=== PATIENT | female | born 1975 | race American Indian/Alaskan Native ===

== ENCOUNTER 2017-07-03 12:38 | Emergency (ER) | payer OTHER ==
[2017-07-03] MEDS ORDERED: Sodium Chloride 0.9% 1,000 ML IV ONE (12:59)
[2017-07-03] MEDS ORDERED: Ondansetron 4 MG/2 ML SDV IV ONE ×2 (12:59→15:16)
[2017-07-03] MEDS: Sodium Chloride 0.9% 10 ML Syringe FLUSH PRN ×2 (13:12→15:24)
[2017-07-03] MEDS ORDERED: Acetaminophen 325 MG Tab PO ONE (13:18)
[2017-07-03] MEDS ORDERED: Ketorolac 30 MG/ML SDV IVPUSH ONE (13:18)
[2017-07-03 13:50] LABS: CHLORIDE,CL 105 mmol/L (101-111); SODIUM,NA 137 mmol/L (135-145)
[2017-07-03] MEDS ORDERED: Acetaminophen/HYDROcodone 325-10 MG Tab PO ONE (15:16)
--- NOTE | 2017-07-03 15:20 | EDM.PDOC ---
Scribed by Odette Kat 07/03/17 1314 for Nilton Hedrick MD ED HPI GENERAL MEDICAL PROBLEM - General Chief Complaint: Chest Pain Stated Complaint: [id number] SICK FOR 4 DAYS Time Seen by Provider: 07/03/17 12:57 Source of Information: Reports: Patient, RN, RN Notes Reviewed History Limitations: Reports: No Limitations - History of Present Illness INITIAL COMMENTS - FREE TEXT/NARRATIVE: Patient arrives from home by POV with complaint of 4 days of cough, chest pains , fever, chills, nausea, vomiting and shortness of breath. Denies abdominal pain. Duration: Getting Worse Location: Reports: Chest Quality: Reports: Ache Severity: Severe Improves with: Reports: None Worsens with: Reports: None Associated Symptoms: Reports: No Other Symptoms Chest Pain Score (Numeric/FACES): 8 - Related Data Allergies Allergy/AdvReac Type Severity Reaction Status Date / Time cephalexin Allergy Hives Verified 07/03/17 12:51 Penicillins Allergy Hives Verified 07/03/17 12:51 sulfamethoxazole Allergy Rash Verified 07/03/17 12:51 [From Bactrim] trimethoprim [From Bactrim] Allergy Rash Verified 07/03/17 12:51 Home Meds: Home Meds Ibuprofen [Motrin Children's Susp] 800 mg PO BIDM PRN 08/20/13 [History] Acetaminophen 500 mg PO Q6H PRN 05/21/16 [History] Albuterol Sulfate [Proair Respiclick] 90 mcg IH Q4H PRN 05/21/16 [History] Cyclobenzaprine [Flexeril] 10 mg PO Q8H PRN 05/21/16 [History] Esomeprazole [NexIUM] 40 mg PO DAILY 05/21/16 [History] Estrogens, Conjugated [Premarin Vaginal Crm] 1 gm VAG .TWICE WEEKLY 05/21/16 [ History] Lisinopril [Prinivil] 2.5 mg PO BID 05/21/16 [History] Mometasone/Formoterol [Dulera 100-5 MCG] 2 puff IH BIDRT 05/21/16 [History] Ranitidine HCl [Ranitidine] 150 mg PO BID 05/21/16 [History] Past Medical History HEENT History: Reports: Impaired Vision Cardiovascular History: Reports: None Respiratory History: Reports: None Gastrointestinal History: Reports: Other (See Below) Other Gastrointestinal History: ulcers Genitourinary History: Reports: Renal Disease, Other (See Below) Other Genitourinary History: stage 3 kidney disease 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 Other OB/BYN History: tubal Musculoskeletal History: Reports: None Neurological History: Reports: None Psychiatric History: Reports: None Endocrine/Metabolic History: Reports: None Hematologic History: Reports: None Immunologic History: Reports: None Oncologic (Cancer) History: Reports: None Dermatologic History: Reports: None - Infectious Disease History Infectious Disease History: Reports: None - Past Surgical History Head Surgeries/Procedures: Reports: None Social & Family History - Family History Family Medical History: Noncontributory - Tobacco Use Smoking Status *Q: Never Smoker Years of Tobacco use: 6 Used Tobacco, but Quit: Yes Month Tobacco Last Used: May Second Hand Smoke Exposure: Yes - Caffeine Use Caffeine Use: Reports: Soda - Alcohol Use Days Per Week of Alcohol Use: 0 - Recreational Drug Use Recreational Drug Use: No - Living Situation & Occupation Living situation: Reports: with Family ED ROS GENERAL - Review of Systems Review Of Systems: ROS reveals no pertinent complaints other than HPI. ED EXAM, GENERAL - Physical Exam Exam: See Below Exam Limited By: No Limitations General Appearance: Alert, WD/WN, No Apparent Distress, Obese Eye Exam: Bilateral Eye: Normal Inspection Ears: Normal External Exam, Normal Canal, Hearing Grossly Normal, Normal TMs Nose: Normal Inspection, Normal Mucosa, No Blood Throat/Mouth: Normal Inspection, Normal Lips, Normal Teeth, Normal Gums, Normal Oropharynx, Normal Voice, No Airway Compromise Head: Atraumatic, Normocephalic Neck: Normal Inspection, Supple, Non-Tender, Full Range of Motion, Other (No nuchal rigidity). No: Lymphadenopathy (L), Lymphadenopathy (R) Respiratory/Chest: No Respiratory Distress, No Accessory Muscle Use, Chest Non- Tender, Decreased Breath Sounds, Crackles, Other (occ. dry cough). No: Rales, Rhonchi, Wheezing Cardiovascular: Normal Peripheral Pulses, Regular Rate, Rhythm, No Edema, No Gallop, No JVD, No Murmur, No Rub GI/Abdominal: Normal Bowel Sounds, Soft, Non-Tender, No Distention, No Abnormal Bruit, Other (benign obese abdomen). No: Guarding, Rigid, Rebound (Female) Exam: Deferred Rectal (Female) Exam: Deferred Back Exam: Normal Inspection, Full Range of Motion, NT Extremities: Normal Inspection, Normal Range of Motion, Non-Tender, Normal Capillary Refill, No Pedal Edema Neurological: Alert, Oriented, CN II-XII Intact, Normal Cognition, Normal Gait, Normal Reflexes, No Motor/Sensory Deficits Psychiatric: Normal Affect, Normal Mood Skin Exam: Warm, Dry, Intact, Normal Color, No Rash EKG INTERPRETATION EKG Date: 07/03/17 Time: 12:47 Rhythm: Other (sinus rhythm) Rate (Beats/Min): 92 Moville: RAD-Right Moville Deviation (borderline) P-Wave: Present QRS: Normal ST-T: Normal QT: Normal Course - Vital Signs Last Recorded V/S: Last Vital Signs Temp 37.5 C 07/03/17 14:25 Pulse 87 07/03/17 14:25 Resp 16 07/03/17 14:25 BP 104/69 07/03/17 14:25 Pulse Ox 97 07/03/17 14:25 - Orders/Labs/Meds Orders: Active Orders 24 hr Category Date Time Status EKG 12 Lead [EKG Documentation Completion] [RC] STAT Care 07/03/17 12:57 Active Peripheral IV Care [RC] . DIRECTED Care 07/03/17 12:59 Active CULTURE BLOOD [BC] Stat Lab 07/03/17 12:59 Ordered CULTURE BLOOD [] Stat Lab 07/03/17 14:15 Received CULTURE STREP A CONFIRMATION [] Stat Lab 07/03/17 12:58 Results STREP SCRN A RAPID W CULT CONF [RM] Stat Lab 07/03/17 12:58 Results UA W/MICROSCOPIC [URIN] Stat Lab 07/03/17 14:05 Results Acetaminophen/HYDROcodone [Bruner 325-10 MG] Med 07/03/17 15:16 Once 1 tab PO ONETIME ONE Ondansetron [Zofran] Med 07/03/17 15:16 Once 4 mg IV ONETIME ONE Sodium Chloride 0.9% [Saline Flush] Med 07/03/17 12:58 Active 10 ml FLUSH ASDIRECTED PRN Blood Culture x2 Reflex Set [OM.PC] Stat Oth 07/03/17 12:57 Ordered Peripheral IV Insertion Adult [OM.PC] Stat Oth 03/03/18 12:57 Ordered Medication Orders Sodium Chloride (Saline Flush) 10 ml FLUSH ASDIRECTED PRN PRN Reason: Keep Vein Open Last Admin: 07/03/17 13:12 Dose: 10 ml Labs: Laboratory Tests 07/03/17 07/03/17 07/03/17 Range/Units 13:05 13:05 13:05 WBC 11.0 H (5.0-10.0) 10^3/uL RBC 4.53 (4.2-5.4) 10^6/uL Hgb 13.3 (12.0-16.0) g/dL Hct 39.1 (37.0-47.0) % MCV 86.3 (80-100) fL MCH 29.4 (27.0-34.0) pg MCHC 34.0 (33.0-35.0) g/dL Plt Count 281 (150-450) 10^3/uL Neut % (Auto) 76.5 H (42.2-75.2) % Lymph % (Auto) 14.1 L (20.5-50.1) % [place] % (Auto) 5.2 (2-8) % Eos % (Auto) 3.9 H (1.0-3.0) % Baso % (Auto) 0.3 (0.0-1.0) % D-Dimer, Quantitative < 100 (0-400) ng/mL Sodium 137 (135-145) mmol/L Potassium 3.5 L (3.6-5.0) mmol/L Chloride 105 (101-111) mmol/L Carbon Dioxide 22.0 (21.0-31.0) mmol/L Anion Gap 13.5 BUN 15 (7-18) mg/dL Creatinine 1.0 (0.6-1.3) mg/dL Est Cr Clr Drug Dosing 59.15 mL/min Estimated GFR (MDRD) > 60 BUN/Creatinine Ratio 15.00 Glucose 115 H (74-105) mg/dL Lactic Acid (0.5-2.2) mmol/L Calcium 8.7 (8.4-10.2) mg/dl Total Bilirubin 0.4 (0.2-1.0) mg/dL AST 24 (10-42) IU/L ALT 39 (10-60) IU/L Alkaline Phosphatase 87 (42-121) IU/L Troponin I < 0.02 (0.00-0.02) ng/ml Total Protein 7.9 (6.7-8.2) g/dl Albumin 4.0 (3.2-5.5) g/dl Globulin 3.9 Albumin/Globulin Ratio 1.03 Amylase 57 (28-100) U/L Lipase 14 L (22-51) U/L Urine Color (YELLOW) Urine Appearance (CLEAR) Urine pH (5.0-9.0) Ur Specific Parker (1.005-1.030) Urine Protein (NEGATIVE) Urine Glucose (UA) (NEGATIVE) Urine Ketones (NEGATIVE) Urine Occult Blood (NEGATIVE) Urine Nitrite (NEGATIVE) Urine Bilirubin (NEGATIVE) Urine Urobilinogen (0.2-1.0) mg/dL Ur Leukocyte Esterase (NEGATIVE) Urine HCG, Qual Urine Opiates Screen (NEGATIVE) Ur Oxycodone Screen (NEGATIVE) Urine Methadone Screen (NEGATIVE) Ur Barbiturates Screen (NEGATIVE) U Tricyclic Antidepress (NEGATIVE) Ur Phencyclidine Scrn (NEGATIVE) Ur Amphetamine Screen (NEGATIVE) U Methamphetamines Scrn (NEGATIVE) Urine MDMA Screen (NEGATIVE) U Benzodiazepines Scrn (NEGATIVE) Urine Cocaine Screen (NEGATIVE) U Marijuana (THC) Screen (NEGATIVE) 07/03/17 07/03/17 07/03/17 Range/Units 13:05 14:05 14:09 WBC (5.0-10.0) 10^3/uL RBC (4.2-5.4) 10^6/uL Hgb (12.0-16.0) g/dL Hct (37.0-47.0) % MCV (80-100) fL MCH (27.0-34.0) pg MCHC (33.0-35.0) g/dL Plt Count (150-450) 10^3/uL Neut % (Auto) (42.2-75.2) % Lymph % (Auto) (20.5-50.1) % [place] % (Auto) (2-8) % Eos % (Auto) (1.0-3.0) % Baso % (Auto) (0.0-1.0) % D-Dimer, Quantitative (0-400) ng/mL Sodium (135-145) mmol/L Potassium (3.6-5.0) mmol/L Chloride (101-111) mmol/L Carbon Dioxide (21.0-31.0) mmol/L Anion Gap BUN (7-18) mg/dL Creatinine (0.6-1.3) mg/dL Est Cr Clr Drug Dosing mL/min Estimated GFR (MDRD) BUN/Creatinine Ratio Glucose (74-105) mg/dL Lactic Acid 1.2 (0.5-2.2) mmol/L Calcium (8.4-10.2) mg/dl Total Bilirubin (0.2-1.0) mg/dL AST (10-42) IU/L ALT (10-60) IU/L Alkaline Phosphatase (42-121) IU/L Troponin I (0.00-0.02) ng/ml Total Protein (6.7-8.2) g/dl Albumin (3.2-5.5) g/dl Globulin Albumin/Globulin Ratio Amylase (28-100) U/L Lipase (22-51) U/L Urine Color Yellow (YELLOW) Urine Appearance Slightly cloudy (CLEAR) Urine pH 6.0 (5.0-9.0) Ur Specific Parker 1.025 (1.005-1.030) Urine Protein 100 H (NEGATIVE) Urine Glucose (UA) Negative (NEGATIVE) Urine Ketones Negative (NEGATIVE) Urine Occult Blood Negative (NEGATIVE) Urine Nitrite Negative (NEGATIVE) Urine Bilirubin Negative (NEGATIVE) Urine Urobilinogen 0.2 (0.2-1.0) mg/dL Ur Leukocyte Esterase Negative (NEGATIVE) Urine HCG, Qual Negative Urine Opiates Screen (NEGATIVE) Ur Oxycodone Screen (NEGATIVE) Urine Methadone Screen (NEGATIVE) Ur Barbiturates Screen (NEGATIVE) U Tricyclic Antidepress (NEGATIVE) Ur Phencyclidine Scrn (NEGATIVE) Ur Amphetamine Screen (NEGATIVE) U Methamphetamines Scrn (NEGATIVE) Urine MDMA Screen (NEGATIVE) U Benzodiazepines Scrn (NEGATIVE) Urine Cocaine Screen (NEGATIVE) U Marijuana (THC) Screen (NEGATIVE) 07/03/17 Range/Units 14:09 WBC (5.0-10.0) 10^3/uL RBC (4.2-5.4) 10^6/uL Hgb (12.0-16.0) g/dL Hct (37.0-47.0) % MCV (80-100) fL MCH (27.0-34.0) pg MCHC (33.0-35.0) g/dL Plt Count (150-450) 10^3/uL Neut % (Auto) (42.2-75.2) % Lymph % (Auto) (20.5-50.1) % [place] % (Auto) (2-8) % Eos % (Auto) (1.0-3.0) % Baso % (Auto) (0.0-1.0) % D-Dimer, Quantitative (0-400) ng/mL Sodium (135-145) mmol/L Potassium (3.6-5.0) mmol/L Chloride (101-111) mmol/L Carbon Dioxide (21.0-31.0) mmol/L Anion Gap BUN (7-18) mg/dL Creatinine (0.6-1.3) mg/dL Est Cr Clr Drug Dosing mL/min Estimated GFR (MDRD) BUN/Creatinine Ratio Glucose (74-105) mg/dL Lactic Acid (0.5-2.2) mmol/L Calcium (8.4-10.2) mg/dl Total Bilirubin (0.2-1.0) mg/dL AST (10-42) IU/L ALT (10-60) IU/L Alkaline Phosphatase (42-121) IU/L Troponin I (0.00-0.02) ng/ml Total Protein (6.7-8.2) g/dl Albumin (3.2-5.5) g/dl Globulin Albumin/Globulin Ratio Amylase (28-100) U/L Lipase (22-51) U/L Urine Color (YELLOW) Urine Appearance (CLEAR) Urine pH (5.0-9.0) Ur Specific [place] (1.005-1.030) Urine Protein (NEGATIVE) Urine Glucose (UA) (NEGATIVE) Urine Ketones (NEGATIVE) Urine Occult Blood (NEGATIVE) Urine Nitrite (NEGATIVE) Urine Bilirubin (NEGATIVE) Urine Urobilinogen (0.2-1.0) mg/dL Ur Leukocyte Esterase (NEGATIVE) Urine HCG, Qual Urine Opiates Screen Negative (NEGATIVE) Ur Oxycodone Screen Negative (NEGATIVE) Urine Methadone Screen Negative (NEGATIVE) Ur Barbiturates Screen Negative (NEGATIVE) U Tricyclic Antidepress Positive H (NEGATIVE) Ur Phencyclidine Scrn Negative (NEGATIVE) Ur Amphetamine Screen Negative (NEGATIVE) U Methamphetamines Scrn Negative (NEGATIVE) Urine MDMA Screen Negative (NEGATIVE) U Benzodiazepines Scrn Negative (NEGATIVE) Urine Cocaine Screen Negative (NEGATIVE) U Marijuana (THC) Screen Negative (NEGATIVE) Rapid strep: Negative. Influenza A and B: Negative. Meds: Medications Generic Name Dose Route Start Last Admin Trade Name Frejosh PRN Reason Stop Dose Admin Sodium Chloride 10 ml 07/03/17 12:58 07/03/17 13:12 Saline Flush FLUSH 10 ml ASDIRECTED PRN Administration Keep Vein Open Discontinued Medications Generic Name Dose Route Start Last Admin Trade Name Freq PRN Reason Stop Dose Admin Acetaminophen 650 mg 07/03/17 13:18 07/03/17 13:26 Tylenol PO 07/03/17 13:19 650 mg NOW ONE Administration Sodium Chloride 1,000 mls @ 999 mls/hr 07/03/17 12:59 07/03/17 13:11 Normal Saline IV 07/03/17 13:59 999 mls/hr .BOLUS ONE Administration Ketorolac Tromethamine 30 mg 07/03/17 13:18 07/03/17 13:26 Toradol IVPUSH 07/03/17 13:19 30 mg ONETIME ONE Administration Ondansetron HCl 4 mg 07/03/17 12:59 07/03/17 13:11 Zofran IV 07/03/17 13:00 4 mg ONETIME ONE Administration - Radiology Interpretation Free Text/Narrative:: Chest x-ray: No evidence for acute pulmonary disease. See rad report. Departure - Departure Time of Disposition: 15:18 Disposition: Home, Self-Care 01 Condition: Good Clinical Impression: Acute viral syndrome - Discharge Information Instructions: Viral Illness, Adult, Fever, Adult, [id number] Forms: ED Department Discharge Additional Instructions: Rx: Promethazine 25mg Clear liquid diet until nausea and vomiting resolve, then advance to soft bland diet as tolerated. Avoid dairy products, fried or greasy foods, and spicy foods until completely improved. Follow up in clinic if not improving in 3 to 5 days. Return to ER pain becomes severe, you are unable to tolerated clear liquids without vomiting, or if any other emergent symptoms develop. - My Orders Last 24 Hours: My Active Orders 07/03/17 12:57 EKG 12 Lead [EKG Documentation Completion] [RC] STAT Blood Culture x2 Reflex Set [OM.PC] Stat Peripheral IV Insertion Adult [OM.PC] Stat 07/03/17 12:58 CULTURE STREP A CONFIRMATION [RM] Stat STREP SCRN A RAPID W CULT CONF [RM] Stat Sodium Chloride 0.9% [Saline Flush] 10 ml FLUSH ASDIRECTED PRN 07/03/17 12:59 Peripheral IV Care [RC] . DIRECTED CULTURE BLOOD [BC] Stat 07/03/17 14:05 UA W/MICROSCOPIC [URIN] Stat 07/03/17 14:15 CULTURE BLOOD [BC] Stat 07/03/17 15:16 Acetaminophen/HYDROcodone [Bruner 325-10 MG] 1 tab PO ONETIME ONE Ondansetron [Zofran] 4 mg IV ONETIME ONE - Assessment/Plan Last 24 Hours: My Active Orders 07/03/17 12:57 EKG 12 Lead [EKG Documentation Completion] [RC] STAT Blood Culture x2 Reflex Set [OM.PC] Stat Peripheral IV Insertion Adult [OM.PC] Stat 07/03/17 12:58 CULTURE STREP A CONFIRMATION [RM] Stat STREP SCRN A RAPID W CULT CONF [RM] Stat Sodium Chloride 0.9% [Saline Flush] 10 ml FLUSH ASDIRECTED PRN 07/03/17 12:59 Peripheral IV Care [RC] . DIRECTED CULTURE BLOOD [BC] Stat 07/03/17 14:05 UA W/MICROSCOPIC [URIN] Stat 07/03/17 14:15 CULTURE BLOOD [BC] Stat 07/03/17 15:16 Acetaminophen/HYDROcodone [Bruner 325-10 MG] 1 tab PO ONETIME ONE Ondansetron [Zofran] 4 mg IV ONETIME ONE I have read and agree with the documentation that has been completed regarding this visit. By signing this record, I attest that the documentation was completed in my physical presence and is an accurate record of the encounter.
[2017-07-03 15:32] VITALS: BP 97/81
--- NOTE | 2017-07-06 11:54 | EKG ---
07/03/2017 - COLIN LIM Yovany - TIME: 12:47 p.m. FINDINGS: EKG shows a normal sinus rhythm, with a rate of 92 beats per minute, normal axis, normal QRS complex, normal T-wave and ST segments. [facility] /[id number]
== END 2017-07-03 15:32 | disposition home or self-care (01) ==
LOC: DL.ED 12:38
DX: B34.9 Viral infection, unspecified (principal); N18.3 Chronic kidney disease, stage 3 (moderate); Z87.891 Personal history of nicotine dependence; Z79.899 Other long term (current) drug therapy; Z88.0 Allergy status to penicillin; Z88.1 Allergy status to other antibiotic agents; Z88.2 Allergy status to sulfonamides
CPT/HCPCS: 36415; 71046; 80053; 80305; 81001; 81025; 82150; 83605; 83690; 84484; 85025; 85379; 87040; 87081; 87430; 87804; 93005; 96361; 96374; 96375; 96376; 99285; A9270; J1885; J2405; J7030; J7050

== ENCOUNTER 2018-09-16 08:47 | Inpatient (IN) | payer OTHER ==
--- NOTE | 2018-09-16 09:11 | EDM.PDOC ---
ED HPI GENERAL MEDICAL PROBLEM - General Chief Complaint: Flank Pain Stated Complaint: KIDNEY PAINS [id number] Time Seen by Provider: 09/16/18 09:11 Source of Information: Reports: Patient, Family, RN, RN Notes Reviewed History Limitations: Reports: No Limitations - History of Present Illness INITIAL COMMENTS - FREE TEXT/NARRATIVE: Patient to ER with c/o "kidney pain". 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 Patient states she has been having pain since Wednesday. She admits to fever, chills, N/V. Denies diarrhea. Denies urinary symptoms, but states she has not urinated much since Wednesday. Denies kidney stones in the past. Onset: Gradual Duration: Constant, Getting Worse Location: Reports: Abdomen, Back Right Flank Pain Score (Numeric/FACES): 10 - Related Data Allergies Allergy/AdvReac Type Severity Reaction Status Date / Time cephalexin Allergy Hives Verified 07/03/17 12:51 Penicillins Allergy Hives Verified 07/03/17 12:51 sulfamethoxazole Allergy Rash Verified 07/03/17 12:51 [From Bactrim] trimethoprim [From Bactrim] Allergy Rash Verified 07/03/17 12:51 Home Meds: Home Meds Ibuprofen [Motrin Children's Susp] 800 mg PO BIDM PRN 08/20/13 [History] Acetaminophen 500 mg PO Q6H PRN 05/21/16 [History] Albuterol Sulfate [Proair Respiclick] 90 mcg IH Q4H PRN 05/21/16 [History] Cyclobenzaprine [Flexeril] 10 mg PO Q8H PRN 05/21/16 [History] Esomeprazole [NexIUM] 40 mg PO DAILY 05/21/16 [History] Estrogens, Conjugated [Premarin Vaginal Crm] 1 gm VAG .TWICE WEEKLY 05/21/16 [ History] Lisinopril [Prinivil] 2.5 mg PO BID 05/21/16 [History] Mometasone/Formoterol [Dulera 100-5 MCG] 2 puff IH BIDRT 05/21/16 [History] Ranitidine HCl [Ranitidine] 150 mg PO BID 05/21/16 [History] Past Medical History HEENT History: Reports: Impaired Vision Cardiovascular History: Reports: None Respiratory History: Reports: None Gastrointestinal History: Reports: Other (See Below) Other Gastrointestinal History: ulcers Genitourinary History: Reports: Renal Disease, Other (See Below) Other Genitourinary History: stage 3 kidney disease 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 SPLICING MACHINE 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 History: tubal Musculoskeletal History: Reports: None Neurological History: Reports: None Psychiatric History: Reports: None Endocrine/Metabolic History: Reports: None Hematologic History: Reports: None Immunologic History: Reports: None Oncologic (Cancer) History: Reports: None Dermatologic History: Reports: None - Infectious Disease History Infectious Disease History: Reports: None - Past Surgical History Head Surgeries/Procedures: Reports: None Social & Family History - Family History Family Medical History: Noncontributory - Tobacco Use Smoking Status *Q: Unknown Ever Smoked - Caffeine Use Caffeine Use: Reports: None - Recreational Drug Use Recreational Drug Use: No - Living Situation & Occupation Living situation: Reports: with Family ED ROS GENERAL - Review of Systems Review Of Systems: ROS reveals no pertinent complaints other than HPI. ED EXAM, RENAL/ - Physical Exam Exam: See Below Exam Limited By: No Limitations General Appearance: Alert, WD/WN, Moderate Distress Eye Exam: Bilateral Eye: EOMI, Normal Inspection Ears: Normal External Exam, Hearing Grossly Normal Nose: Normal Inspection Throat/Mouth: Normal Inspection, Normal Voice, No Airway Compromise Head: Atraumatic, Normocephalic Neck: Normal Inspection, Supple, Non-Tender, Full Range of Motion Respiratory/Chest: No Respiratory Distress, Lungs Clear, Normal Breath Sounds, No Accessory Muscle Use, Chest Non-Tender Cardiovascular: Normal Peripheral Pulses, Regular Rate, Rhythm, No Edema, No Gallop, No JVD, No Murmur, No Rub GI/Abdominal: Normal Bowel Sounds, Soft, Tender (Female) Exam: Deferred Rectal (Female) Exam: Deferred Back Exam: Normal Inspection, CVA Tenderness (R), Decreased Range of Motion Extremities: Normal Inspection, Normal Range of Motion, Non-Tender, Normal Capillary Refill, No Pedal Edema Neurological: Alert, Oriented, CN II-XII Intact, Normal Cognition, Normal Gait, Normal Reflexes, No Motor/Sensory Deficits Psychiatric: Normal Affect, Normal Mood Skin Exam: Warm, Dry, Intact, Normal Color, No Rash Lymphatic: No Adenopathy Course - Vital Signs Last Recorded V/S: Last Vital Signs Temp 98.6 F 09/16/18 08:52 Pulse 120 H 09/16/18 08:52 Resp 16 09/16/18 08:52 BP 111/64 09/16/18 08:52 Pulse Ox 96 09/16/18 08:52 - Orders/Labs/Meds Orders: Active Orders 24 hr Category Date Time Status Abdomen Pelvis wo Cont [CT] Urgent Exams 09/16/18 10:14 Taken CULTURE BLOOD [BC] Stat Lab 09/16/18 09:48 Received CULTURE BLOOD [BC] Stat Lab 09/16/18 09:55 Received CULTURE URINE [RM] Stat Lab 09/16/18 08:58 Received Ciprofloxacin in D5W [Cipro in D5W 400 MG/200 ML] 400 Med 09/16/18 11:03 Active mg Premix Bag 1 bag IV ONETIME Sodium Chloride 0.9% [Normal Saline] 1,000 ml Med 09/16/18 11:00 Active IV .BOLUS Sodium Chloride 0.9% [Saline Flush] Med 09/16/18 11:17 Active 10 ml FLUSH ASDIRECTED PRN Blood Culture x2 Reflex Set [OM.PC] Stat Oth 09/16/18 09:32 Ordered Medication Orders Sodium Chloride (Normal Saline) 1,000 mls @ 200 mls/hr IV .BOLUS ONE Stop: 09/16/18 15:59 Last Admin: 09/16/18 11:19 Dose: 200 mls/hr Ciprofloxacin/Dextrose 400 mg/ (Premix) 200 mls @ 200 mls/hr IV ONETIME ONE Stop: 09/16/18 12:02 Last Admin: 09/16/18 11:22 Dose: 200 mls/hr Sodium Chloride (Saline Flush) 10 ml FLUSH ASDIRECTED PRN PRN Reason: Keep Vein Open Last Admin: 09/16/18 11:18 Dose: 10 ml Labs: Laboratory Tests 09/16/18 09/16/18 09/16/18 Range/Units 08:58 08:58 09:02 WBC 19.7 H (5.0-10.0) 10^3/uL RBC 4.57 (4.2-5.4) 10^6/uL Hgb 13.9 (12.0-16.0) g/dL Hct 39.8 (37.0-47.0) % MCV 87.1 (80-100) fL MCH 30.4 (27.0-34.0) pg MCHC 34.9 (33.0-35.0) g/dL Plt Count 264 (150-450) 10^3/uL Neut % (Auto) 85.0 H (42.2-75.2) % Lymph % (Auto) 7.3 L (20.5-50.1) % Yates % (Auto) 7.4 (2-8) % Eos % (Auto) 0.1 L (1.0-3.0) % Baso % (Auto) 0.2 (0.0-1.0) % Sodium (135-145) mmol/L Potassium (3.6-5.0) mmol/L Chloride (101-111) mmol/L Carbon Dioxide (21.0-31.0) mmol/L Anion Gap BUN (7-18) mg/dL Creatinine (0.6-1.3) mg/dL Est Cr Clr Drug Dosing mL/min Estimated GFR (MDRD) BUN/Creatinine Ratio Glucose (74-105) mg/dL Lactic Acid (0.5-2.2) mmol/L Calcium (8.4-10.2) mg/dl Total Bilirubin (0.2-1.0) mg/dL AST (10-42) IU/L ALT (10-60) IU/L Alkaline Phosphatase (42-121) IU/L B-Natriuretic Peptide (0-100) pg/ml Total Protein (6.7-8.2) g/dl Albumin (3.2-5.5) g/dl Globulin Albumin/Globulin Ratio Urine Color Yellow (YELLOW) Urine Appearance Cloudy (CLEAR) Urine pH 5.5 (5.0-9.0) Ur Specific [place] 1.020 (1.005-1.030) Urine Protein 100 H (NEGATIVE) Urine Glucose (UA) Negative (NEGATIVE) Urine Ketones Negative (NEGATIVE) Urine Occult Blood Moderate H (NEGATIVE) Urine Nitrite Positive H (NEGATIVE) Urine Bilirubin Negative (NEGATIVE) Urine Urobilinogen 0.2 (0.2-1.0) mg/dL Ur Leukocyte Esterase Small H (NEGATIVE) Urine RBC 5-10 H /HPF Urine WBC >100 H (0-5/HPF) /HPF Ur Epithelial Cells Moderate H (NOT SEEN) /HPF Urine Bacteria Many H (0-FEW/HPF) /HPF Urine HCG, Qual Negative 09/16/18 09/16/18 Range/Units 09:02 09:48 WBC (5.0-10.0) 10^3/uL RBC (4.2-5.4) 10^6/uL Hgb (12.0-16.0) g/dL Hct (37.0-47.0) % MCV (80-100) fL MCH (27.0-34.0) pg MCHC (33.0-35.0) g/dL Plt Count (150-450) 10^3/uL Neut % (Auto) (42.2-75.2) % Lymph % (Auto) (20.5-50.1) % Yates % (Auto) (2-8) % Eos % (Auto) (1.0-3.0) % Baso % (Auto) (0.0-1.0) % Sodium 130 L (135-145) mmol/L Potassium 3.6 (3.6-5.0) mmol/L Chloride 99 L (101-111) mmol/L Carbon Dioxide 17.0 L (21.0-31.0) mmol/L Anion Gap 17.6 BUN 14 (7-18) mg/dL Creatinine 1.3 (0.6-1.3) mg/dL Est Cr Clr Drug Dosing 45.04 mL/min Estimated GFR (MDRD) 45 BUN/Creatinine Ratio 10.76 Glucose 141 H (74-105) mg/dL Lactic Acid 0.5 (0.5-2.2) mmol/L Calcium 8.9 (8.4-10.2) mg/dl Total Bilirubin 0.7 (0.2-1.0) mg/dL AST 46 H (10-42) IU/L ALT 50 (10-60) IU/L Alkaline Phosphatase 90 (42-121) IU/L B-Natriuretic Peptide 18 (0-100) pg/ml Total Protein 8.3 H (6.7-8.2) g/dl Albumin 4.0 (3.2-5.5) g/dl Globulin 4.3 Albumin/Globulin Ratio 0.93 Urine Color (YELLOW) Urine Appearance (CLEAR) Urine pH (5.0-9.0) Ur Specific [place] (1.005-1.030) Urine Protein (NEGATIVE) Urine Glucose (UA) (NEGATIVE) Urine Ketones (NEGATIVE) Urine Occult Blood (NEGATIVE) Urine Nitrite (NEGATIVE) Urine Bilirubin (NEGATIVE) Urine Urobilinogen (0.2-1.0) mg/dL Ur Leukocyte Esterase (NEGATIVE) Urine RBC /HPF Urine WBC (0-5/HPF) /HPF Ur Epithelial Cells (NOT SEEN) /HPF Urine Bacteria (0-FEW/HPF) /HPF Urine HCG, Qual Meds: Medications Generic Name Dose Route Start Last Admin Trade Name Freq PRN Reason Stop Dose Admin Sodium Chloride 1,000 mls @ 200 mls/hr 09/16/18 11:00 09/16/18 11:19 Normal Saline IV 09/16/18 15:59 200 mls/hr .BOLUS ONE Administration Ciprofloxacin/Dextrose 400 mg/ 200 mls @ 200 mls/hr 09/16/18 11:03 09/16/18 11:22 Premix IV 09/16/18 12:02 200 mls/hr ONETIME ONE Administration Sodium Chloride 10 ml 09/16/18 11:17 09/16/18 11:18 Saline Flush FLUSH 10 ml ASDIRECTED PRN Administration Keep Vein Open Discontinued Medications Generic Name Dose Route Start Last Admin Trade Name Freq PRN Reason Stop Dose Admin Hydromorphone HCl 1 mg 09/16/18 11:00 09/16/18 11:20 Dilaudid IVPUSH 09/16/18 11:01 1 mg ONETIME ONE Administration Sodium Chloride 1,000 mls @ 999 mls/hr 09/16/18 09:18 09/16/18 09:29 Normal Saline IV 09/16/18 10:18 999 mls/hr .BOLUS ONE Administration Ketorolac Tromethamine 30 mg 09/16/18 09:18 09/16/18 09:29 Toradol IVPUSH 09/16/18 09:19 30 mg ONETIME ONE Administration Ondansetron HCl 4 mg 09/16/18 09:26 09/16/18 09:29 Zofran IV 09/16/18 09:27 4 mg ONETIME ONE Administration - Radiology Interpretation Free Text/Narrative:: CT Abdomen/Pelvis wo contrast: Right pyelonephritis noted. Call from Dr. Cool as computer system is not working. See rad report when available - Re-Assessments/Exams Free Text/Narrative Re-Assessment/Exam: 09/16/18 11:26 Discussed patient case with Dr. Mccann who agreed to accept the patient to the medical floor for observation. Departure - Departure Time of Disposition: 11:26 Disposition: Refer to Observation Condition: Fair Clinical Impression: Pyelonephritis - Discharge Information *PRESCRIPTION DRUG MONITORING PROGRAM REVIEWED*: No *COPY OF PRESCRIPTION DRUG MONITORING REPORT IN PATIENT JOSE: No Forms: ED Department Discharge - My Orders Last 24 Hours: My Active Orders 09/16/18 08:58 CULTURE URINE [RM] Stat 09/16/18 09:32 Blood Culture x2 Reflex Set [OM.PC] Stat 09/16/18 09:48 CULTURE BLOOD [BC] Stat 09/16/18 09:55 CULTURE BLOOD [BC] Stat 09/16/18 10:14 Abdomen Pelvis wo Cont [CT] Urgent 09/16/18 11:00 Sodium Chloride 0.9% [Normal Saline] 1,000 ml IV .BOLUS 09/16/18 11:03 Ciprofloxacin in D5W [Cipro in D5W 400 MG/200 ML] 400 mg Premix Bag 1 bag IV ONETIME 09/16/18 11:17 Sodium Chloride 0.9% [Saline Flush] 10 ml FLUSH ASDIRECTED PRN - Assessment/Plan Last 24 Hours: My Active Orders 09/16/18 08:58 CULTURE URINE [RM] Stat 09/16/18 09:32 Blood Culture x2 Reflex Set [OM.PC] Stat 09/16/18 09:48 CULTURE BLOOD [BC] Stat 09/16/18 09:55 CULTURE BLOOD [BC] Stat 09/16/18 10:14 Abdomen Pelvis wo Cont [CT] Urgent 09/16/18 11:00 Sodium Chloride 0.9% [Normal Saline] 1,000 ml IV .BOLUS 09/16/18 11:03 Ciprofloxacin in D5W [Cipro in D5W 400 MG/200 ML] 400 mg Premix Bag 1 bag IV ONETIME 09/16/18 11:17 Sodium Chloride 0.9% [Saline Flush] 10 ml FLUSH ASDIRECTED PRN
[2018-09-16] MEDS ORDERED: Ketorolac 30 MG/ML SDV IVPUSH ONE (09:18)
[2018-09-16] MEDS ORDERED: Sodium Chloride 0.9% 1,000 ML IV ONE ×2 (09:18→11:00)
[2018-09-16] MEDS ORDERED: Ondansetron 4 MG/2 ML SDV IV ONE (09:26)
[2018-09-16 09:35] LABS: ANION GAP 17.6
[2018-09-16] MEDS ORDERED: HYDROmorphone 1 MG/ML Syringe IVPUSH ONE (11:00)
[2018-09-16] MEDS ORDERED: Ciprofloxacin in D5W 400 MG in Premix Bag 1 BAG IV ONE ×2 (11:03)
[2018-09-16] MEDS: Sodium Chloride 0.9% 10 ML Syringe FLUSH PRN (11:18)
[2018-09-16] MEDS ORDERED: Docusate Sodium 100 MG Cap PO PRN (12:15)
[2018-09-16] MEDS ORDERED: Polyethylene Glycol 3350 Powder 17 GM Packet PO PRN (12:15)
--- NOTE | 2018-09-16 12:17 | CT ---
Clinical history: 43-year-old female with right flank pain and abnormally elevated white blood cell count (19,700). Congenitally absent left kidney. Scan technique: Volume acquisition of data unenhanced (renal stone study) CT scan abdomen and pelvis obtained while the patient was lying supine on the Siemens multislice scanner [place], [place]. All data archived in the PACS system for storage, reformatting axial/sagittal/coronal planes and study. Interpretation: 1. Large homogeneously dense fatty liver. Gallbladder unremarkable. 2. Left kidney. *Large edematous, inhomogeneously dense (infected?) right kidney with perinephric fluid (pyelosinus backflow?). 3. No calcifications identified in the pyelocalyceal system right kidney or ipsilateral right ureter but there is evidence of apparent mild pyelocaliectasis and ipsilateral ureterectasis down to the bladder trigone. Recently passed stone? Distal ureteral stricture? 4. Sigmoid diverticulosis. Normal appendix RLQ. 5. No abdominal or pelvic mass lesion, inflammatory "dirty" peritoneal fat, signs of mechanical bowel obstruction, ascites or free intraperitoneal air. 6. Normal caliber aortoiliac vessels. Lower lumbar disc disease. Lung bases clear. CONCLUSION: Probable pyelonephritis, right kidney. Fatty liver. Congenitally absent left kidney. Sigmoid diverticulosis.
[2018-09-16] MEDS ORDERED: Albuterol 6.7 GM Inhaler INH PRN (12:20)
[2018-09-16] MEDS ORDERED: Non-Formulary Medication 1 Each (Ranitidine Hcl [Ranitidine] 150 MG) PO PRN (12:20)
[2018-09-16] MEDS: Heparin Sodium 5,000 Units/ML Vial SUBCUT SCH ×2 (13:55→21:07)
[2018-09-16] MEDS ORDERED: Ondansetron 4 MG Tab.DIS PO PRN (14:00)
[2018-09-16] MEDS: Acetaminophen/oxyCODONE 325-5 MG Tab PO PRN (14:04)
--- NOTE | 2018-09-16 15:14 | HP ---
CHIEF COMPLAINT: Right-sided flank pain. HISTORY OF PRESENTING ILLNESS: Mrs. 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 The patient had a CT scan of the abdomen and pelvis, which showed evidence of acute pyelonephritis along with urinary tract infection requiring admission to the hospital. At this time, the patient complains of flank pain, which has been going on for the last 2 days, which has been progressively getting worse. She grades the pain as 8/10 in intensity, which gets aggravated on movement and ambulation, relieved partially with rest, nonradiating type of pain, not associated with nausea or vomiting. The patient had at least 2 episodes of vomiting this morning, non-blood, which was bilious-stained. Denied any chest pain. No shortness of breath. The pain is sharp in nature. Had similar episodes in the past with recurrent urinary tract infections in the past. She denies any diarrhea at this time. The patient denied any history of chest pains on exertion. No history of dyspnea on exertion. No history of orthopnea or paroxysmal nocturnal dyspnea. The patient denied any history of hematemesis, hematochezia, or melenic stools. Normal bowel and bladder habits, otherwise. REVIEW OF SYSTEMS: A complete review of systems including skin; ear, nose, and throat; cardiovascular system; respiratory system; gastrointestinal system; genitourinary system; hematology; oncology; neurology; allergy; immunology; constitutional were all evaluated and were negative except for the above-said notes. PAST MEDICAL HISTORY: Significant for gastroesophageal reflux disease, obesity, focal segmental glomerular sclerosis, chronic kidney disease, congenital absence of the left kidney, reactive airway disease, lactose intolerance, history of H. pylori in the past, and gastritis and duodenitis in the past. PAST SURGICAL HISTORY: Significant for upper endoscopy, tonsillectomy, laparoscopic tubal ligation, ectopic surgery, and back surgery. FAMILY HISTORY: Significant for chronic obstructive pulmonary airway disease in her mother. History of cancer, diabetes, heart attack, and colon cancer in her father. Uterine cancer in one of her sisters. Lupus in one of her sisters. Seizures and cancer in her brother. SOCIAL HISTORY: The patient denied any history of smoking tobacco, but had smoking in the past, quit smoking back in 2013. No history of alcohol intake. ALLERGIES: The patient noted to have allergies to Keflex, strawberry, azithromycin, Bactrim, clindamycin, and penicillin. HOME MEDICATIONS: Include: 1. Ranitidine 150 mg twice a day as needed. 2. Dulera 2-puff inhalation twice a day. 3. Lisinopril 2.5 mg twice a day. 4. Nexium 40 mg daily as needed. 5. Albuterol 90 mcg inhalation as needed. 6. Tylenol 500 mg every 6 hours as needed. PHYSICAL EXAMINATION: Vital Signs: Temperature of 99.4, pulse of 94, blood pressure 101/58, respiratory rate of 20, and saturating at 96% on room air. General Appearance: The patient is well oriented to time, place, and person. Follows commands spontaneously. Cardiovascular System: S1 and S2 heard with normal intensity. No gallops. Respiratory System: Clear to auscultation bilaterally. No wheeze. No crepitations. Abdomen: Soft. Bowel sounds positive. Nontender. Mild tenderness on the right flank. No rigidity. No guarding. No rebound tenderness. Extremities: No edema in bilateral lower extremities. LABORATORY DATA: 1. WBC 19.7, hemoglobin 13.9, hematocrit 39.8, and platelet count 264. 2. Sodium 130, potassium 3.6, chloride 99, bicarb 17, BUN 14, creatinine 1.3, glucose 141, lactic acid 0.5, AST 46, ALT 50. B-natriuretic peptide 18. 3. Urinalysis suggests positive for nitrites, small leukocyte esterase. Urine wbc's greater than 100. Beta-hCG negative. Epithelial cells moderate. Many bacteria. ASSESSMENT: 1. Urinary tract infection with pyelonephritis. 2. Possible sepsis. 3. Chronic kidney disease with underlying focal segmental glomerulosclerosis. 4. Congenital absence of left-sided kidney. 5. Gastroesophageal reflux disease. 6. Obesity. PLAN: 1. Urinary tract infection with pyelonephritis. The patient is noted to have pyelonephritis on the CT scan. Urinalysis suggests history of urinary tract infection. The patient will be admitted to the hospital. We will have her on IV antibiotic ciprofloxacin. She is noted to have allergies to penicillin, sulfa, and Keflex. We will await for blood cultures and urine cultures, and titrate the antibiotics. 2. Possible sepsis. The patient noted to have temperature of 102 at home. She is noted to have leukocytosis and also tachycardic suggestive of possible sepsis. We will await for blood cultures. Her initial lactic acid is within normal limits. We will follow with serial lactic acid levels. 3. Gastroesophageal reflux disease. Continue proton pump inhibitor while in the hospital. 4. Chronic kidney disease, remains stable. The patient's creatinine is at 1.3. Keep her hydrated with IV fluids. Recheck a basic metabolic panel in the a.m. 5. Hyponatremia. The patient's sodium down to 130, could be hypovolemic hyponatremia from nausea and vomiting. Continue with IV normal saline. We will have her on antiemetic protocol. 6. Code status. The patient wants to be full code. Discussed with [facility] ER staff regarding the plan of care. Reviewed the labs and medications. Reviewed the old charts. [facility] /[id number]
[2018-09-16] MEDS ORDERED: Sodium Chloride 0.9% 1,000 ML IV SCH (18:00)
[2018-09-16] MEDS ORDERED: Formoterol/Mometasone 100-5 MCG 8.8 GM Inhaler IH SCH (18:00)
[2018-09-16] MEDS: Acetaminophen 325 MG Tab PO PRN (21:00)
[2018-09-16] MEDS: Ciprofloxacin in D5W 400 MG in Premix Bag 1 BAG IV SCH ×2 (21:07)
[2018-09-16] MEDS: Lisinopril 5 MG Tab PO SCH (22:20)
[2018-09-17] MEDS: Morphine 2 MG/ML Syringe IVPUSH PRN ×2 (06:13→14:30)
[2018-09-17] MEDS: Omeprazole 20 MG Cap.CR PO SCH (06:19)
[2018-09-17] MEDS: Heparin Sodium 5,000 Units/ML Vial SUBCUT SCH ×3 (06:19→21:24)
[2018-09-17] MEDS: Acetaminophen 325 MG Tab PO PRN ×3 (06:20→21:22)
[2018-09-17 06:32] LABS: ANION GAP 13.3
[2018-09-17] MEDS: Ciprofloxacin in D5W 400 MG in Premix Bag 1 BAG IV SCH ×4 (09:00→21:16)
[2018-09-17] MEDS: Lisinopril 5 MG Tab PO SCH (09:03)
[2018-09-17] MEDS: Acetaminophen/oxyCODONE 325-5 MG Tab PO PRN ×2 (09:07→21:23)
[2018-09-17] MEDS: Ondansetron 4 MG/2 ML SDV IVPUSH PRN ×2 (12:05→21:22)
[2018-09-17] MEDS: Sodium Chloride 0.9% 10 ML Syringe FLUSH PRN (12:05)
[2018-09-17] MEDS: Sodium Bicarbonate 650 MG Tab PO SCH ×2 (12:06→21:24)
[2018-09-17] MEDS: Potassium Chloride 10 MEQ Tab.ER PO SCH ×2 (12:06→17:36)
--- NOTE | 2018-09-17 12:15 | PN ---
DATE: 09/17/2018 SUBJECTIVE: Mrs. Cecily Us is a 43-year-old female with medical history significant for gastroesophageal reflux disease, congenital absence of the left side of the kidney, obesity, chronic kidney disease, recent diagnosis of focal segmental glomerulosclerosis on the right side, history of recurrent urinary tract infection secondary to reflux nephropathy, admitted with acute pyelonephritis and noted to have sepsis and bacteremia. For the last 24 hours, the patient continued to have fevers. Her T-max was 105, and she is noted to have low blood pressure. She continues to have pain to the right flank side. She grades the pain as 4/10 to 5/10 in intensity, aggravated on movement and ambulation, relieved with pain medications. She denies any nausea or vomiting. No chest pain, no shortness of breath at this time. REVIEW OF SYSTEMS: Cardiovascular, respiratory, gastrointestinal, neurology, and constitutional were all evaluated. MEDICATIONS: 1. Tylenol 650 every 4 hours as needed for pain and fever. 2. Ciprofloxacin IV q.12 hourly. 3. Heparin 5000 subcu q.8 hourly. 4. Added meropenem IV q.8 hourly. 5. Morphine 2 mg IV every 2 hours as needed for pain. 6. Omeprazole 20 mg daily. 7. Zofran as needed. 8. Percocet 5/325 mg every 4 hours as needed for pain. 9. Potassium chloride 20 mEq twice a day. 10.Sodium bicarbonate 1300 mg twice a day. LABORATORY DATA: Labs reviewed. WBC 13.2, hemoglobin 11.3, hematocrit 33, platelet count 172; sodium 132, potassium 3.3, chloride 105, bicarb 17, BUN 13, creatinine 1.4, glucose 149, lactic acid 0.9, and magnesium 1.6. Urine culture shows greater than 100,000 colony-forming units of gram-negative rods. ID and susceptibility to be followed. Blood cultures, 1 of 2 blood cultures showing gram-negative rods in the blood culture. ASSESSMENT: 1. Acute pyelonephritis. 2. Bacteremia with possible sepsis. 3. Gastroesophageal reflux disease. 4. Chronic kidney disease. 5. Hyponatremia. 6. Hypokalemia. 7. Hypomagnesemia. 8. Metabolic acidosis. PLAN: 1. Urinary tract infection. The patient's urine culture is positive for gram- negative stacy and also 1/2 blood cultures are positive for gram-negative stacy consistent with sepsis and bacteremia. The patient is currently on IV ciprofloxacin, and she had a fever of 105 last night. We will broaden the spectrum of antibiotics till we have the ID and susceptibility. We will add IV meropenem. The patient is allergic to penicillin, sulfa, trimethoprim, and cephalexin. We will continue with IV meropenem for now and titrate the antibiotics once we have the culture reports available. Her lactic acid was within normal limits. 2. Hypokalemia. We will replace with IV and oral potassium chloride. Recheck a basic metabolic panel in a.m. 3. Hypomagnesemia. We will replace with oral magnesium oxide. Recheck a magnesium in a.m. 4. Chronic kidney disease. Her creatinine is slightly increased to 1.4 from her baseline function of 1.3. We will continue with IV normal saline with potassium at 100 mL/h. Recheck a basic metabolic panel in a.m. Avoid nephrotoxic agents. Dose adjust medications for renal function. Hold the lisinopril. 5. Hypertension. The patient noted to have lower blood pressure at this time. We will discontinue the lisinopril. We will keep her hydrated with IV fluids, maintain euvolemic status, avoid any hypotensive episodes. 6. DVT prophylaxis. Continue with heparin for DVT prophylaxis. 7. The patient was referred to observation status at the time of admission, but secondary to the bacteremia, sepsis, pyelonephritis, ongoing electrolyte imbalance, and the patient would require long-term antibiotics, the patient will be switched to acute inpatient service today. [facility] /[id number]
[2018-09-17] MEDS: NS + KCl 20mEq/L 1,000 ML IV SCH (12:16)
[2018-09-17] MEDS: Meropenem 1 GM in Sodium Chloride 0.9% 100 ML IV SCH ×2 (14:22→22:40)
[2018-09-17] MEDS ORDERED: Sodium Chloride 0.9% 500 ML IV SCH (19:00)
[2018-09-18] MEDS: NS + KCl 20mEq/L 1,000 ML IV SCH ×2 (01:09→11:27)
[2018-09-18] MEDS: Heparin Sodium 5,000 Units/ML Vial SUBCUT SCH (06:15)
[2018-09-18] MEDS: Meropenem 1 GM in Sodium Chloride 0.9% 100 ML IV SCH (06:15)
[2018-09-18] MEDS: Omeprazole 20 MG Cap.CR PO SCH (06:16)
[2018-09-18] MEDS: Acetaminophen/oxyCODONE 325-5 MG Tab PO PRN (06:21)
[2018-09-18] MEDS: Acetaminophen 325 MG Tab PO PRN (06:21)
[2018-09-18] MEDS: Potassium Chloride 10 MEQ Tab.ER PO SCH (08:34)
[2018-09-18] MEDS: Sodium Bicarbonate 650 MG Tab PO SCH (08:35)
[2018-09-18] MEDS: Ciprofloxacin in D5W 400 MG in Premix Bag 1 BAG IV SCH ×2 (08:40)
[2018-09-18] MEDS: Ondansetron 4 MG/2 ML SDV IVPUSH PRN (10:02)
[2018-09-18 11:17] VITALS: BP 94/58
--- NOTE | 2018-09-18 11:22 | DISCH ---
ADMITTING DIAGNOSES: 1. Acute pyelonephritis. 2. Urinary tract infection. 3. Possible sepsis. 4. Chronic kidney disease. 5. Gastroesophageal reflux disease. DISCHARGE DIAGNOSES: 1. Acute pyelonephritis involving the right kidney. 2. Urinary tract infection leading to possible sepsis. 3. Bacteremia and possible sepsis. 4. Hypotension. 5. Chronic kidney disease. 6. Hyponatremia. 7. Hypokalemia. 8. Hypomagnesemia. 9. Metabolic acidosis. HISTORY OF PRESENTING ILLNESS: Mrs. Cecily Centeno is a 43-year-old female with a medical history significant for gastroesophageal reflux disease, congenital absence of the left kidney, obesity, chronic kidney disease. No recurrent urinary tract infection secondary to reflux nephropathy admitted to the hospital with complaints of increasing right-sided flank pain and noted to have pyelonephritis. The patient had a CT scan of the abdomen and pelvis, which showed evidence of pyelonephritis. The patient was admitted and was started on IV antibiotics. She was initially started on ciprofloxacin IV, but her blood cultures were positive for E. coli and urine culture was positive for E. coli and she continued to have fevers and low blood pressure, so we added meropenem, but on the susceptibility the E. coli sensitive to ciprofloxacin. Due to the continued fevers and low blood pressure and questionable distal ureteral stricture on the CT scan finding, the patient is being transferred to higher level of care for possible Urology consultation and possible cystoscopy with possible stricture dilatation and stent placement. She is discharged to [facility] in stable condition. She will continue with her antibiotics. DISCHARGE MEDICATIONS: Include: 1. Tylenol 500 mg every 6 hours as needed for pain. 2. Percocet 5/325 mg every 4 hours as needed for pain. 3. Albuterol 2 puffs inhalation every 4 hours as needed. 4. Ciprofloxacin 400 mg IV q.12 hourly. 5. Nexium 40 mg daily. 6. Meropenem 1 g IV q.8 hourly. 7. Dulera 2-puff inhalation twice a day. 8. Zofran 4 mg oral every 4 hours as needed for nausea, vomiting. 9. Potassium chloride 20 mEq twice a day. 10.Ranitidine 150 mg twice a day. 11.Sodium bicarbonate 1300 mg twice a day. She is advised to hold her lisinopril secondary to low blood pressure. PHYSICAL EXAMINATION: On the day of discharge: Vital Signs: Temperature of 97.1, T-max of 102.4, pulse of 84, blood pressure of 95/50, respiratory rate 16, saturating at 96% on room air. General Appearance: The patient is well oriented to time, place, and person. Follows commands spontaneously. Cardiovascular: S1 and S2 heard with normal intensity. No gallops. Respiratory: Clear to auscultation bilaterally. No wheeze. No crepitations. Abdomen: Soft. Bowel sounds positive. Nontender. No rigidity. Extremities: No edema of bilateral lower extremities. Neurology: No gross focal neurological deficits. CONDITION ON ADMISSION: Poor. CONDITION ON DISCHARGE: Stable. DISPOSITION: Discharged to [facility] for Urology consultation and treatment. DIET: Regular diet. Follow with primary care physician in 1 week post discharge from [facility]. TIME SPENT: Spent over 35 minutes of time in evaluating treating this patient and making discharge plans. [facility] /[id number]
== END 2018-09-18 11:45 | DRG 872 ==
LOC: DL.ED 08:47 → UNDOADMOB 11:35 → DL.MS 11:35 → OBSVTOIN 09-17 09:57
PROVIDERS: ADMIT Internal Medicine; ATTEND Internal Medicine
DX: A41.9 Sepsis, unspecified organism (principal); N10 Acute pyelonephritis; E87.1 Hypo-osmolality and hyponatremia; E87.2 Acidosis; Q60.0 Renal agenesis, unilateral; N11.1 Chronic obstructive pyelonephritis; K21.9 Gastro-esophageal reflux disease without esophagitis; E87.6 Hypokalemia; E83.42 Hypomagnesemia; H54.7 Unspecified visual loss; I12.9 Hypertensive chronic kidney disease with stage 1 through stage 4 chronic kidney disease, or unspecified chronic kidney disease; N18.3 Chronic kidney disease, stage 3 (moderate); E66.9 Obesity, unspecified; B96.20 Unspecified Escherichia coli [E. coli] as the cause of diseases classified elsewhere; J45.909 Unspecified asthma, uncomplicated; E73.9 Lactose intolerance, unspecified; Z87.891 Personal history of nicotine dependence; Z88.1 Allergy status to other antibiotic agents; Z88.0 Allergy status to penicillin; Z91.018 Allergy to other foods; Z68.33 Body mass index [BMI] 33.0-33.9, adult; Z79.899 Other long term (current) drug therapy; Z28.21 Immunization not carried out because of patient refusal
CPT/HCPCS: 36415; 74176; 80048; 80053; 81001; 81025; 83605; 83735; 83880; 85025; 85027; 87040; 87077; 87086; 87088; 87186; 96361; 96365; 96372; 96374; 96375; 96376; 99284-25; A4217; A9270-GY; G0378; J0744; J1170; J1644; J1885; J2185; J2270; J2405; J3480; J7030; J7040; J7050

== ENCOUNTER 2019-04-22 12:16 | Emergency (ER) | payer OTHER ==
[2019-04-22 12:32] VITALS: BP 113/85; PULSE 90
[2019-04-22] MEDS: Sodium Chloride 0.9% 1,000 ML IV ONE (13:12)
[2019-04-22] MEDS: Ondansetron 4 MG/2 ML SDV IV ONE (13:12)
--- NOTE | 2019-04-22 13:17 | EDM.PDOC ---
ED HPI GENERAL MEDICAL PROBLEM - General Chief Complaint: General Stated Complaint: FEVER CHILLS STOMACH Time Seen by Provider: 04/22/19 12:58 Source of Information: Reports: Patient History Limitations: Reports: No Limitations - History of Present Illness INITIAL COMMENTS - FREE TEXT/NARRATIVE: This 44 yo female patient reports to the ED due to not feeling well since . The patient reports she has had nausea, vomiting and diarrhea for 3 days, but also had noticed increased abdominal pain and right flank pain today. The patient reports she has been taking Pepto, but has not attempted to get into the clinic. The patient reports she has attempted to take Tylenol, but has vomited it up most of the time. The patient reports she vomited "at least 6 times today." Onset Date: 04/20/19 Duration: Constant, Getting Worse Location: Reports: Abdomen Quality: Reports: Ache, Dull Severity: Moderate Improves with: Reports: None Worsens with: Reports: None Context: Reports: Other Associated Symptoms: Reports: Nausea/Vomiting Right Flank Pain Score (Numeric/FACES): 7 - Related Data Allergies Allergy/AdvReac Type Severity Reaction Status Date / Time cephalexin Allergy Hives Verified 04/22/19 12:26 Penicillins Allergy Hives Verified 04/22/19 12:26 sulfamethoxazole Allergy Rash Verified 04/22/19 12:26 [From Bactrim] trimethoprim [From Bactrim] Allergy Rash Verified 04/22/19 12:26 Home Meds: Home Meds Acetaminophen 500 mg PO Q6H PRN 05/21/16 [History] Esomeprazole [NexIUM] 40 mg PO DAILY PRN 05/21/16 [History] Mometasone/Formoterol [Dulera 100-5 MCG] 2 puff IH BID 05/21/16 [History] Albuterol Sulfate [Proair Hfa] 2 puff IH Q4HR PRN 09/16/18 [History] Famotidine [Pepcid] 20 mg PO BID 09/21/18 [History] Losartan [Cozaar] 25 mg PO BID 09/21/18 [History] lisinopriL [Prinivil] 2.5 mg PO BEDTIME 09/21/18 [History] Past Medical History HEENT History: Reports: Impaired Vision Other HEENT History: wearsglasses Cardiovascular History: Reports: None Respiratory History: Reports: None Gastrointestinal History: Reports: GERD, Other (See Below) Other Gastrointestinal History: ulcers Genitourinary History: Reports: Renal Calculus, Renal Disease, Other (See Below) Other Genitourinary History: stage 3 kidney disease MANAGER REHAB History: Reports: None Other MANAGER REHAB History: tubal Musculoskeletal History: Reports: None Neurological History: Reports: None Psychiatric History: Reports: None Endocrine/Metabolic History: Reports: Obesity/BMI 30+ Hematologic History: Reports: None Immunologic History: Reports: None Oncologic (Cancer) History: Reports: None Dermatologic History: Reports: None - Infectious Disease History Infectious Disease History: Reports: Other (See Below) Other Infectious Disease History: e-coli - Past Surgical History Head Surgeries/Procedures: Reports: None Female Surgical History: Reports: Tubal Ligation Social & Family History - Family History Family Medical History: Noncontributory - Tobacco Use Smoking Status *Q: Never Smoker Second Hand Smoke Exposure: No - Caffeine Use Caffeine Use: Reports: None - Recreational Drug Use Recreational Drug Use: No - Living Situation & Occupation Living situation: Reports: with Family ED ROS GENERAL - Review of Systems Review Of Systems: Comprehensive ROS is negative, except as noted in HPI. ED EXAM, GENERAL - Physical Exam Exam: See Below Exam Limited By: No Limitations General Appearance: Alert, WD/WN, Moderate Distress Eye Exam: Bilateral Eye: EOMI, Normal Inspection, PERRL Ears: Normal External Exam, Normal Canal, Hearing Grossly Normal, Normal TMs Nose: Normal Inspection, Normal Mucosa, No Blood Throat/Mouth: Normal Inspection, Normal Lips, Normal Teeth, Normal Gums, Normal Oropharynx, Normal Voice, No Airway Compromise Head: Atraumatic, Normocephalic Neck: Normal Inspection, Supple, Non-Tender, Full Range of Motion Respiratory/Chest: No Respiratory Distress, Lungs Clear, Normal Breath Sounds, No Accessory Muscle Use, Chest Non-Tender Cardiovascular: Normal Peripheral Pulses, Regular Rate, Rhythm, No Edema, No Gallop, No JVD, No Murmur, No Rub GI/Abdominal: Normal Bowel Sounds, Soft, No Organomegaly, No Distention, No Abnormal Bruit, No Mass, Pelvis Stable, Tender (diffuse tenderness) (Female) Exam: Deferred Rectal (Female) Exam: Deferred Back Exam: Normal Inspection, Full Range of Motion, NT Extremities: Normal Inspection, Normal Range of Motion, Non-Tender, Normal Capillary Refill, No Pedal Edema Neurological: Alert, Oriented, CN II-XII Intact, Normal Cognition, Normal Gait, Normal Reflexes, No Motor/Sensory Deficits Psychiatric: Normal Affect, Normal Mood Skin Exam: Warm, Dry, Intact, Normal Color, No Rash Lymphatic: No Adenopathy Course - Vital Signs Last Recorded V/S: Last Vital Signs Temp 36.4 C 04/22/19 12:27 Pulse 90 04/22/19 12:27 Resp 16 04/22/19 12:27 BP 113/85 04/22/19 12:27 Pulse Ox 99 04/22/19 12:27 - Orders/Labs/Meds Orders: Active Orders 24 hr Category Date Time Status CULTURE BLOOD [BC] Stat Lab 04/22/19 13:02 Ordered Sodium Chloride 0.9% [Normal Saline] 1,000 ml Med 04/22/19 13:02 Ordered IV .BOLUS Medication Orders Sodium Chloride (Normal Saline) 1,000 mls @ 999 mls/hr IV .BOLUS ONE Stop: 04/22/19 14:02 Last Admin: 04/22/19 13:12 Dose: 999 mls/hr Labs: Laboratory Tests 04/22/19 04/22/19 04/22/19 Range/Units 12:30 12:30 13:11 WBC (5.0-10.0) 10^3/uL RBC (4.2-5.4) 10^6/uL Hgb (12.0-16.0) g/dL Hct (37.0-47.0) % MCV (80-100) fL MCH (27.0-34.0) pg MCHC (33.0-35.0) g/dL Plt Count (150-450) 10^3/uL Neut % (Auto) (42.2-75.2) % Lymph % (Auto) (20.5-50.1) % Porter % (Auto) (2-8) % Eos % (Auto) (1.0-3.0) % Baso % (Auto) (0.0-1.0) % Sodium (135-145) mmol/L Potassium (3.6-5.0) mmol/L Chloride (101-111) mmol/L Carbon Dioxide (21.0-31.0) mmol/L Anion Gap BUN (7-18) mg/dL Creatinine (0.6-1.3) mg/dL Est Cr Clr Drug Dosing mL/min Estimated GFR (MDRD) BUN/Creatinine Ratio Glucose (74-105) mg/dL Lactic Acid 0.8 (0.5-2.2) mmol/L Calcium (8.4-10.2) mg/dl Total Bilirubin (0.2-1.0) mg/dL AST (10-42) IU/L ALT (10-60) IU/L Alkaline Phosphatase (42-121) IU/L Total Protein (6.7-8.2) g/dl Albumin (3.2-5.5) g/dl Globulin Albumin/Globulin Ratio Urine Color Yellow (YELLOW) Urine Appearance Slightly cloudy (CLEAR) Urine pH 5.5 (5.0-9.0) Ur Specific Stanford >= 1.030 (1.005-1.030) Urine Protein 100 H (NEGATIVE) Urine Glucose (UA) Negative (NEGATIVE) Urine Ketones Negative (NEGATIVE) Urine Occult Blood Negative (NEGATIVE) Urine Nitrite Negative (NEGATIVE) Urine Bilirubin Negative (NEGATIVE) Urine Urobilinogen 0.2 (0.2-1.0) mg/dL Ur Leukocyte Esterase Negative (NEGATIVE) Urine RBC Not seen /HPF Urine WBC 0-5 (0-5/HPF) /HPF Ur Epithelial Cells Moderate H (NOT SEEN) /HPF Urine Bacteria Rare (0-FEW/HPF) /HPF Hyaline Casts Occasional H (NOT SEEN) /LPF Urine Mucus Rare (NOT SEEN) /LPF Urine Opiates Screen Negative (NEGATIVE) Ur Oxycodone Screen Negative (NEGATIVE) Urine Methadone Screen Negative (NEGATIVE) Ur Barbiturates Screen Negative (NEGATIVE) U Tricyclic Antidepress Negative (NEGATIVE) Ur Phencyclidine Scrn Negative (NEGATIVE) Ur Amphetamine Screen Negative (NEGATIVE) U Methamphetamines Scrn Negative (NEGATIVE) Urine MDMA Screen Negative (NEGATIVE) U Benzodiazepines Scrn Negative (NEGATIVE) Urine Cocaine Screen Negative (NEGATIVE) U Marijuana (THC) Screen Negative (NEGATIVE) 04/22/19 04/22/19 Range/Units 13:11 13:11 WBC 9.4 (5.0-10.0) 10^3/uL RBC 4.41 (4.2-5.4) 10^6/uL Hgb 13.3 D (12.0-16.0) g/dL Hct 38.5 (37.0-47.0) % MCV 87.3 (80-100) fL MCH 30.2 (27.0-34.0) pg MCHC 34.5 (33.0-35.0) g/dL Plt Count 265 D (150-450) 10^3/uL Neut % (Auto) 87.9 H (42.2-75.2) % Lymph % (Auto) 5.4 L (20.5-50.1) % Porter % (Auto) 3.0 (2-8) % Eos % (Auto) 3.5 H (1.0-3.0) % Baso % (Auto) 0.2 (0.0-1.0) % Sodium 138 (135-145) mmol/L Potassium 3.8 (3.6-5.0) mmol/L Chloride 107 (101-111) mmol/L Carbon Dioxide 21.0 (21.0-31.0) mmol/L Anion Gap 13.8 BUN 18 (7-18) mg/dL Creatinine 0.9 (0.6-1.3) mg/dL Est Cr Clr Drug Dosing 64.40 mL/min Estimated GFR (MDRD) > 60 BUN/Creatinine Ratio 20.00 Glucose 124 H (74-105) mg/dL Lactic Acid (0.5-2.2) mmol/L Calcium 8.9 D (8.4-10.2) mg/dl Total Bilirubin 0.7 (0.2-1.0) mg/dL AST 44 H (10-42) IU/L ALT 70 H (10-60) IU/L Alkaline Phosphatase 84 (42-121) IU/L Total Protein 7.9 (6.7-8.2) g/dl Albumin 4.5 (3.2-5.5) g/dl Globulin 3.4 Albumin/Globulin Ratio 1.32 Urine Color (YELLOW) Urine Appearance (CLEAR) Urine pH (5.0-9.0) Ur Specific Stanford (1.005-1.030) Urine Protein (NEGATIVE) Urine Glucose (UA) (NEGATIVE) Urine Ketones (NEGATIVE) Urine Occult Blood (NEGATIVE) Urine Nitrite (NEGATIVE) Urine Bilirubin (NEGATIVE) Urine Urobilinogen (0.2-1.0) mg/dL Ur Leukocyte Esterase (NEGATIVE) Urine RBC /HPF Urine WBC (0-5/HPF) /HPF Ur Epithelial Cells (NOT SEEN) /HPF Urine Bacteria (0-FEW/HPF) /HPF Hyaline Casts (NOT SEEN) /LPF Urine Mucus (NOT SEEN) /LPF Urine Opiates Screen (NEGATIVE) Ur Oxycodone Screen (NEGATIVE) Urine Methadone Screen (NEGATIVE) Ur Barbiturates Screen (NEGATIVE) U Tricyclic Antidepress (NEGATIVE) Ur Phencyclidine Scrn (NEGATIVE) Ur Amphetamine Screen (NEGATIVE) U Methamphetamines Scrn (NEGATIVE) Urine MDMA Screen (NEGATIVE) U Benzodiazepines Scrn (NEGATIVE) Urine Cocaine Screen (NEGATIVE) U Marijuana (THC) Screen (NEGATIVE) Meds: Medications Generic Name Dose Route Start Last Admin Trade Name Freq PRN Reason Stop Dose Admin Sodium Chloride 1,000 mls @ 999 mls/hr 04/22/19 13:02 04/22/19 13:12 Normal Saline IV 04/22/19 14:02 999 mls/hr .BOLUS ONE Administration Discontinued Medications Generic Name Dose Route Start Last Admin Trade Name Freq PRN Reason Stop Dose Admin Ondansetron HCl 4 mg 04/22/19 13:03 04/22/19 13:12 Zofran IV 04/22/19 13:04 4 mg ONETIME ONE Administration Departure - Departure Time of Disposition: 13:53 Disposition: Home, Self-Care 01 Condition: Fair Clinical Impression: Gastroenteritis - Discharge Information *PRESCRIPTION DRUG MONITORING PROGRAM REVIEWED*: Not Applicable *COPY OF PRESCRIPTION DRUG MONITORING REPORT IN PATIENT JOSE: Not Applicable Instructions: Viral Gastroenteritis, Adult Forms: ED Department Discharge Care Plan Goals: The patient was advised of the examination and lab results during the visit. The patient was given IV fluids and IV Zofran while in the ED. The patient was discharged with a script for Zofran (4 mg) #20 to take 1 by mouth every 6 hours as needed for nausea. The patient was encouraged to stick to a BRAT diet ( bananas, rice, applesauce and toast) with small frequent sips of fluid. If the patient has any additional symptoms or concerns, the patient should either return to the emergency department or follow-up with her primary care facility. Sepsis Event Note - Evaluation Sepsis Screening Result: No Definite Risk - Focused Exam Vital Signs: Vital Signs Temp Pulse Resp BP Pulse Ox 04/22/19 12:27 36.4 C 90 16 113/85 99 Date Exam was Performed: 04/22/19 Time Exam was Performed: 13:53 - My Orders Last 24 Hours: My Active Orders 04/22/19 13:02 CULTURE BLOOD [BC] Stat Sodium Chloride 0.9% [Normal Saline] 1,000 ml IV .BOLUS - Assessment/Plan Last 24 Hours: My Active Orders 04/22/19 13:02 CULTURE BLOOD [BC] Stat Sodium Chloride 0.9% [Normal Saline] 1,000 ml IV .BOLUS
[2019-04-22 13:43] LABS: ANION GAP 13.8; CHLORIDE,CL 107 mmol/L (101-111); SODIUM,NA 138 mmol/L (135-145)
== END 2019-04-22 14:14 | disposition home or self-care (01) ==
LOC: DL.ED 12:16
DX: K52.9 Noninfective gastroenteritis and colitis, unspecified (principal); N18.3 Chronic kidney disease, stage 3 (moderate); E66.9 Obesity, unspecified; K21.9 Gastro-esophageal reflux disease without esophagitis; Z88.1 Allergy status to other antibiotic agents; Z88.0 Allergy status to penicillin; Z88.2 Allergy status to sulfonamides; Z68.34 Body mass index [BMI] 34.0-34.9, adult; Z79.899 Other long term (current) drug therapy
CPT/HCPCS: 36415; 80053; 80305; 81001; 83605; 85025; 87040; 87804; 96361; 96374; 99284; J2405; J7030

== ENCOUNTER 2022-03-19 21:17 | Inpatient (IN) | payer OTHER ==
[2022-03-19] MEDS ORDERED: HYDROmorphone 0.5 MG/0.5 ML Syringe IVPUSH ONE ×2 (21:23→22:09)
[2022-03-19] MEDS ORDERED: Ondansetron 4 MG/2 ML SDV IVPUSH ONE (21:24)
[2022-03-19] MEDS ORDERED: Phenazopyridine 95 MG Tab PO ONE (21:28)
[2022-03-19] MEDS: Sodium Chloride 0.9% 10 ML Syringe FLUSH PRN (21:37)
[2022-03-19 21:52] LABS: ANION GAP 14.7 mEq/L (7-13)
[2022-03-19] MEDS ORDERED: Iopamidol 612 MG/ML 100 ML Bottle IVPUSH ONE (22:08)
[2022-03-19] MEDS ORDERED: Sodium Chloride 0.9% 1,000 ML IV ONE ×2 (22:17→22:46)
[2022-03-19] MEDS ORDERED: Ketorolac 30 MG/ML SDV IVPUSH ONE (22:39)
[2022-03-19] MEDS ORDERED: Ciprofloxacin in D5W 400 MG in Premix Bag 1 BAG IV ONE ×2 (23:16)
[2022-03-19] MEDS ORDERED: Magnesium Hydroxide 400 MG/5 ML Susp 30 ML Cup PO PRN (23:51)
[2022-03-19] MEDS ORDERED: Albuterol/Ipratropium 3.0-0.5 MG/3 ML Neb Soln NEB PRN (23:51)
[2022-03-19] MEDS ORDERED: Acetaminophen 325 MG Tab PO PRN (23:51)
[2022-03-19] MEDS ORDERED: Polyethylene Glycol 3350 Powder 17 GM Packet PO PRN (23:51)
[2022-03-19] MEDS ORDERED: HYDROmorphone 1 MG/ML Syringe IVPUSH PRN (23:51)
[2022-03-19] MEDS ORDERED: diphenhydrAMINE 50 MG/ML SDV IVPUSH ONE (23:54)
[2022-03-19] MEDS ORDERED: Dexamethasone 4 MG/ML SDV IVPUSH ONE (23:54)
[2022-03-20] MEDS ORDERED: Acetaminophen/Butalbital/Caffeine 325-50-40 MG Tab PO PRN (00:06)
[2022-03-20] MEDS ORDERED: hydrALAZINE 20 MG/ML SDV IVPUSH PRN (00:09)
[2022-03-20] MEDS ORDERED: Sodium Chloride 0.9% 1,000 ML IV SCH (00:15)
[2022-03-20] MEDS: Metoclopramide 10 MG/2 ML SDV IVPUSH PRN ×2 (00:39→08:38)
[2022-03-20] MEDS: Temazepam 15 MG Cap PO PRN (01:04)
[2022-03-20] MEDS: Acetaminophen/HYDROcodone 325-10 MG Tab PO PRN ×3 (01:04→14:41)
[2022-03-20] MEDS: Ondansetron 4 MG/2 ML SDV IVPUSH PRN ×2 (04:10→14:42)
[2022-03-20] MEDS: Pantoprazole 40 MG Tab.CR PO SCH (05:53)
[2022-03-20] MEDS: Heparin Sodium 5,000 Units/ML Vial SUBCUT SCH ×3 (05:54→21:31)
[2022-03-20] MEDS: Ciprofloxacin in D5W 400 MG in Premix Bag 1 BAG IV SCH ×4 (08:28→21:28)
[2022-03-20] MEDS: Saccharomyces Boulardii (Probiotic) 250 MG Cap PO SCH ×2 (08:30→21:31)
[2022-03-21] MEDS: Pantoprazole 40 MG Tab.CR PO SCH (05:37)
[2022-03-21] MEDS: Heparin Sodium 5,000 Units/ML Vial SUBCUT SCH ×3 (05:37→21:38)
[2022-03-21 06:59] LABS: ANION GAP 10.7 mEq/L (7-13)
[2022-03-21] MEDS: Ciprofloxacin in D5W 400 MG in Premix Bag 1 BAG IV SCH ×4 (08:47→21:41)
[2022-03-21] MEDS: Saccharomyces Boulardii (Probiotic) 250 MG Cap PO SCH ×2 (08:48→21:39)
[2022-03-21] MEDS: Ondansetron 4 MG/2 ML SDV IVPUSH PRN (17:08)
[2022-03-21] MEDS: Temazepam 15 MG Cap PO PRN (21:37)
[2022-03-21] MEDS: Sodium Chloride 0.9% 10 ML Syringe FLUSH PRN ×2 (21:39→22:54)
[2022-03-21] MEDS ORDERED: Famotidine 20 MG/2 ML SDV IVPUSH ONE (22:10)
[2022-03-21] MEDS ORDERED: diphenhydrAMINE 50 MG/ML SDV IVPUSH ONE (22:10)
[2022-03-21] MEDS ORDERED: Dexamethasone 4 MG/ML SDV IVPUSH ONE (22:10)
[2022-03-21] MEDS ORDERED: Meropenem 1 GM in Sodium Chloride 0.9% 100 ML IV ONE (22:45)
[2022-03-22] MEDS: Heparin Sodium 5,000 Units/ML Vial SUBCUT SCH ×4 (05:32→21:16)
[2022-03-22] MEDS: Pantoprazole 40 MG Tab.CR PO SCH (05:32)
[2022-03-22 06:47] LABS: ANION GAP 14.3 mEq/L (7-13)
[2022-03-22] MEDS: Saccharomyces Boulardii (Probiotic) 250 MG Cap PO SCH ×2 (10:31→20:46)
[2022-03-22] MEDS: Meropenem 1 GM in Sodium Chloride 0.9% 100 ML IV SCH ×2 (10:31→20:46)
[2022-03-22] MEDS: Temazepam 15 MG Cap PO PRN (21:29)
[2022-03-23] MEDS: Heparin Sodium 5,000 Units/ML Vial SUBCUT SCH (05:59)
[2022-03-23] MEDS: Pantoprazole 40 MG Tab.CR PO SCH (05:59)
[2022-03-23 07:09] LABS: ANION GAP 12.1 mEq/L (7-13)
[2022-03-23] MEDS: Meropenem 1 GM in Sodium Chloride 0.9% 100 ML IV SCH (10:26)
[2022-03-23] MEDS: Saccharomyces Boulardii (Probiotic) 250 MG Cap PO SCH (10:27)
[2022-03-23] MEDS: Metoclopramide 10 MG/2 ML SDV IVPUSH PRN (10:27)
[2022-03-23 13:09] VITALS: BP 106/52; PULSE 73
== END 2022-03-23 13:40 | disposition home or self-care (01) | DRG 872 ==
LOC: DL.ED 21:17 → DL.MS 23:17
PROVIDERS: ADMIT Internal Medicine; ATTEND Internal Medicine
DX: A40.8 Other streptococcal sepsis (principal); N10 Acute pyelonephritis; N17.9 Acute kidney failure, unspecified; Q60.0 Renal agenesis, unilateral; E87.8 Other disorders of electrolyte and fluid balance, not elsewhere classified; E66.9 Obesity, unspecified; T36.8X5A Adverse effect of other systemic antibiotics, initial encounter; M54.50 Low back pain, unspecified; Z20.822 Contact with and (suspected) exposure to COVID-19; K29.70 Gastritis, unspecified, without bleeding; K76.0 Fatty (change of) liver, not elsewhere classified; G89.29 Other chronic pain; N18.2 Chronic kidney disease, stage 2 (mild); Z87.891 Personal history of nicotine dependence; Z68.39 Body mass index [BMI] 39.0-39.9, adult; Z87.442 Personal history of urinary calculi; Z88.1 Allergy status to other antibiotic agents; Z88.2 Allergy status to sulfonamides; Z88.8 Allergy status to other drugs, medicaments and biological substances; Z86.16 Personal history of COVID-19
CPT/HCPCS: 36415; 74178; 80048; 80053; 81001; 81025; 83605; 83735; 84145; 85025; 86140; 87040; 87086; 87088; 93005; 96361; 96374; 96375; 96376; 99232; 99233; 99238; 99285-25; 99291; A9270-GY; J0744; J1100; J1170; J1200; J1644; J1885; J2185; J2405; J2765; J3490; J7030; U0002

== ENCOUNTER 2022-04-04 20:20 | Emergency (ER) | payer OTHER ==
[2022-04-04] MEDS ORDERED: predniSONE 20 MG Tab PO ONE (20:21)
[2022-04-04 20:32] VITALS: BP 133/78; PULSE 107
[2022-04-04] MEDS ORDERED: Triamcinolone Acetonide 40 MG/ML 1 ML SDV IM ONE (20:34)
[2022-04-04] MEDS ORDERED: predniSONE 20 MG Tab ONE (21:14)
== END 2022-04-04 21:21 | disposition home or self-care (01) ==
LOC: DL.ED 20:20
DX: L50.9 Urticaria, unspecified (principal); E66.9 Obesity, unspecified; Z68.38 Body mass index [BMI] 38.0-38.9, adult; Z88.1 Allergy status to other antibiotic agents; Z88.0 Allergy status to penicillin; Z88.2 Allergy status to sulfonamides; Z79.899 Other long term (current) drug therapy
CPT/HCPCS: 96372; 99282; J3301